=== PATIENT | male | born 1985 | race African-American/Black ===

== ENCOUNTER 2018-06-30 14:11 | Outpatient (RCR) | payer OTHER, MEDICAID, SELFPAY ==
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
--- NOTE | 2018-06-30 18:26 | PT.OPPOC ---
Current Diagnoses Other instability, left knee (06/30/18) Weakness (06/30/18) Provider Visit Care Team Role Provider Type Elizabeth Naranjo MD Primary Care Provider Non-Staff Specialty: Family Practice Address: [address] [facility], [place], [address] Email: Aroldo Leiva MD Attending Provider Non-Staff Specialty: Internal Medicine Address: [address] [facility] [address], [place], [address] Email: Plan Of Care PT-OP-T Assessment and Plan Start: 06/28/18 07:25 Freq: Status: Active Protocol: Document 06/30/18 14:31 [facility] (Rec: 06/30/18 18:26 [facility] [id number]) Physical Therapy Assessment Rehab Potential Rehabilitation Potential Good Evaluation Complexity Number of Personal Factors/Comorbidities 3 or More Number of Body Systems Impaired 4 or More Clinical Presentation at Evaluation Evolving Impairments Impairments Activity Tolerance Balance Functional Activities Functional Mobility Gait Pain Posture ROM Soft Tissue Mobility Strength Goals pain Short Term Goal (STG) Pt will report average pain of 6/10. STG Duration 07/30/18 Wearing Apparel Folder Goal (LTG) Pt will report average pain of 3/10 with daily activities, in order to low inc participation. strength Short Term Goal (STG) Pt will be indep with HEP STG Duration 07/30/18 Wearing Apparel Folder Goal (LTG) Pt will have 4+/5 LE strength on L side in order to improve his ability to do typical daily activities with dec pain . LTG Duration 08/30/18 LEFS Wearing Apparel Folder Goal (LTG) Pt will demonstrate improved function by scoring 50/80 on LEFS LTG Duration 08/30/18 Assessment Summary Assessment Pt presents with LBP with radiculopathy that is creating L hip, knee, thigh and calf pain. He had a positive anterior drawer test, indicating possible ACL tear. He is significant limited in his mobility from this injury and has been gradually decreasing in ability to do activities. He has SI joint dysfunction w/clear neural tension based on symptoms and SLR & slump testing results. Physical Therapy Plan Frequency and Duration Frequency of Treatment 2x/Week Duration of Treatment 2 months Plan of Care Start Date 06/30/18 Plan of Care End Date 08/30/18 Therapeutic Interventions Therapeutic Interventions Aquatic Therapy Balance Training Gait Training Home Exercise Program Joint Mobilizations Manual Therapy Neuromuscular Re-education Patient/Caregiver Education Self-Care/Home Management Soft Tissue Mobilization Taping Therapeutic Activities Therapeutic Exercises Modalities Cold Pack/Ice Massage Electric Stimulation Hot Packs Infrared Therapy Iontophoresis Traction- Mechanical Ultrasound Next Visit Focus/Plan Next Note Type Treatment Note Next Visit Plan estim, core exercises, s/l L hip ER, IR & abd Plan of Care Dates Plan of Care Start Date 06/30/18 Plan of Care End Date 08/30/18 Please Sign and Return: I have reviewed this Plan of Care and certify that the skilled therapy services above are required to meet the patient?s needs. Physician Signature Date Printed Name and Credentials Clinical Instructor Signature Printed Name and Credentials
--- NOTE | 2018-09-22 09:29 | PT.OPDS ---
Current Diagnoses Other instability, left knee (06/30/18) Weakness (06/30/18) Provider Visit Care Team Role Provider Type Elizabeth Naranjo MD Primary Care Provider Non-Staff Specialty: Family Practice Address: [address] [place] [address], [id number] Email: Aroldo Leiva MD Attending Provider Non-Staff Specialty: Internal Medicine Address: [address] [place] [address], [place], [address] Email: PT-OP-T Assessment and Plan Start: 06/28/18 07:25 Freq: Status: Active Protocol: Document 09/22/18 09:29 [facility] (Rec: 09/22/18 09:29 [facility] [id number]) Physical Therapy Plan Discharge Physical Therapy Discharge Reasons No Longer Attending PT Discharge Comments Pt did not schedule follow up appt and did no return calls to schedule further.
== END 2018-09-22 16:07 | disposition home or self-care (01) ==
LOC: PHYS 14:11
PROVIDERS: PCP Family Medicine; Visit Provider Internal Medicine
DX: M25.362 Other instability, left knee (principal); R53.1 Weakness
CPT/HCPCS: 97110; 97162